=== PATIENT | female | born 1955 | race Caucasian/White ===

== ENCOUNTER 2024-06-21 14:44 | Outpatient (AMB) | payer OTHER, SELFPAY ==
[2024-06-21 14:55] VITALS: BP 147/84; PULSE 81; RESP 18; TEMP 36.1; O2SAT 95; BMI 31.1
--- NOTE | 2024-06-21 14:55 | ORTHONT_ITS ---
Vital signs 06/21/24 14:55 Height 1.6 m Height Method Stated Weight 79.634 kg Weight Measurement Method Standing Scale BMI 31.1 BP 147/84 H Blood Pressure Source Automatic Cuff Blood Pressure Location Right Upper Arm Position Sitting Respiration 18 Pulse 81 Pulse Source Monitor Temp 96.9 F Temp Source Temporal Artery Scan Pulse Oximetry (%) 95 Oxygen Delivery Method Room Air Med/Allergies Allergies & Medications Allergies No Known Allergies Allergy (Verified 06/21/24 14:56) Medication Reconciliation albuterol sulfate 90 mcg/actuation aerosol inhaler (Proventil HFA) 2 inh inhalation Q4H PRN shortness of breath or wheezing #8.5 grams 07/27/21 [Rx Confirmed 06/21/24] atenolol 25 mg tablet 25 mg PO QDAY 09/21/22 [History Confirmed 06/21/24] duloxetine 30 mg capsule,delayed release 30 mg PO QDAY 09/21/22 [History Confirmed 06/21/24] esomeprazole magnesium 40 mg capsule,delayed release (Nexium) 40 mg PO QDAY 09/21/22 [History Confirmed 06/21/24] levothyroxine 150 mcg tablet 150 mcg PO QDAY 09/21/22 [History Confirmed 06/21/24] ondansetron HCl 4 mg tablet 4 mg PO Q6H PRN Nausea 09/21/22 [History Confirmed 06/21/24] ropinirole 4 mg tablet,extended release 24 hr 4 mg PO QDAY 09/21/22 [History Confirmed 06/21/24] naproxen 500 mg tablet 500 mg PO bid #60 tabs 03/19/24 [Rx Confirmed 06/21/24] Subjective Visit Visit for: follow up visit Immunization / Flu Flu Vaccine in the Last 12 Months: No Flu Vaccine Exclusion Criteria: No Exclusion Criteria History of Present Illness Chief complaint: follow up on hip Patient is a pleasant 68-year-old female with chronic joint pain. She reports there is significant pain when she lies down on her side. She has not taken much anti-inflammatories. She reports the trochanteric bursa injections lasted only 2 weeks. She reports that a lot of the pain is now in her groin. She also reports that both knees have been bothering her recently. She is post to get hand surgery for arthritis in July Personal History Occupation: DISABLE Red flag PMH: none Pain Pain level (0-10): 9 Pain duration: comes and goes Pain location: groin Pain quality: sharp Pain timing: increases with activity Associated signs & symptoms: numbness and weakness Ambulatory data Ambulatory device: none Treatments Improvement with previous injections: No Improvement with PT: No Improvement with NSAIDS: n/a Review of Systems Review of Systems: All systems negative unless otherwise noted in HPI. Exam Exam Patient is in no acute distress and is cooperative with the examination today. Breathing is nonlabored. In no respiratory distress. Patient has no paraspinal tenderness. Spinal deformity [cannot] be appreciated. The gait of the patient is [nonantalgic] Bilateral extremities were evaluated and demonstrates sensation intact to light touch. Palpable pedal pulses are present. No significant edema is present. Bilateral knees were examined and the patient has full strength and range of motion.. The right hip was examined. Patient was able to flex to 90 degrees, adduct to 30 degrees, abduct to 40 degrees, internally rotate to 20 degrees, and externally rotate to 20 degrees. Patient has a negative logroll. Stinchfield is negative. The patient is nontender diffusely to touch. The left hip was examined. Patient was able to flex to [90] degrees, adduct to [30] degrees, abduct to [40] degrees, internally rotate to [20] degrees, and externally rotate to [20] degrees. PPatient has a positive logroll and Stinchfield. She is tender to palpation laterally over the greater trochanter X-rays demonstrate complete joint space obliteration of the left hip. There is no right hip x-rays. There are subchondral cyst there as well Assessment and Plan Problem List (1) Trochanteric bursitis of left hip: Status: Acute Plan: Patient is a 68-year-old female with a left hip arthritis and trochanteric bursitis. I do think she has both components. I do think the left hip trochanteric bursitis is likely what is bothering her most as she is significantly tender to palpation of the greater trochanter. We discussed nonop erative options including anti-inflammatories and injections. WWhumberto will see her back after her hand is taking care of. She has arthritis of both her knees and her hips. We will have to go through each 1 individually to see what we can do. We will start her on a systemic anti-inflammatory as well (2) Arthritis of left hip: Status: Acute Advanced Care Planning Discussion Advance care planning discussed with:: patient Office Procedures GNS Level of Care Nursing/Assessment Patient Status: Established Patient Nursing Assessment/Reassesment: Medication Reconciliation, Update PMH in EMR and Vital Signs Coordination of Care: Complex Care and Chronic Disease 1-5, Education Complex Pt/Fam, Consent,records obtained, informed consent, Results/Orders obtained and Staff clarify orders Established Patient Charge Established Patient Point Assignment: 95 Established Patient Point Charge: EP Level 3 (80-115) Past Medical History Past Medical History Have you ever been diagnosed with any of the following: Neurological Problems Seizures: No Migraine: Yes Cardiology Problems Congestive Heart Failure: No Hypertension: No Respiratory Problems Chronic Obstructive Pulmonary Disease (COPD): Yes Asthma: Yes Bronchitis: Yes Sleep Apnea: Yes (cpap broke) Stomache/Intestinal Problems Cirrhosis: Yes Hiatal Hernia: Yes Hemorrhoids: Yes Gastroesophageal Reflux Disease: Yes Genital/Urinary Problems Renal Disease: No Reproductive Problems Pelvic Inflammatory Disease: Yes Previous Pregnancies: Yes Musculoskeletal Problems Arthritis: Yes Fractures: Yes (left femur, no surgery) Head,Eye,Nose,Throat Problems Cataracts: Yes (right eye) Chronic Ear Infections: Yes Endocrine Problems Diabetes Mellitus Type 1: No Diabetes Mellitus Type 2: No Hyperthyroidism: Yes Hypothyroidism: Yes Psychologic Problems Depression: Yes Other Problems Blood Transfusions: No Blood Transfusion Reaction: No Anesthesia Reactions: No MRSA: No Chicken Pox: Yes Measles: Yes Mumps: Yes Cancer: No Surgical History Hysterectomy: Yes
== END 2024-06-21 15:36 | disposition home or self-care (01) ==
LOC: HODSRG 14:44
PROVIDERS: PCP Physician Assistant; Referring Provider Physician Assistant; Supervising Provider Orthopaedic Surgery Adult Reconstructive Orthopaedic Surgery; Visit Provider Orthopaedic Surgery Adult Reconstructive Orthopaedic Surgery
DX: M70.62 Trochanteric bursitis, left hip (principal); M16.12 Unilateral primary osteoarthritis, left hip; E03.9 Hypothyroidism, unspecified; K21.9 Gastro-esophageal reflux disease without esophagitis; G47.30 Sleep apnea, unspecified; K74.60 Unspecified cirrhosis of liver
CPT/HCPCS: 99213; G0463

== ENCOUNTER → 2024-07-15 | Outpatient (CLI) | payer OTHER, SELFPAY ==
--- NOTE | 2024-07-15 16:10 | XR_ITS ---
Examination: Bilateral knees 2 views Right lateral knee left lateral knee 2 views Right axial knee left axial knee 2 views total 6 views Technique: Bilateral AP knees standing single view, bilateral PA knees standing 30 degrees flexion single view Standing right lateral knee left lateral knee 2 views Right axial knee left axial knee 2 views total 6 views Exam date and time: July 15, 2024 1616 hrs. Indications: Bilateral knee pain years. Findings: Moderate to advanced narrowing medial joint space right knee Mild to moderate osteoarthritis right patellofemoral joint Advanced narrowing medial joint space left knee Moderate osteoarthritis patellofemoral joint left knee No fracture or dislocation involving either knee Impression: Moderate to advanced narrowing medial joint space right knee Advanced narrowing medial joint space left knee
--- NOTE | 2024-07-15 16:10 | XR_ITS ---
Examination: Abdomen AP single view Technique: AP portable supine abdomen, single view Exam date and time: July 15, 2024 1614 hrs. Indications: Chronic abdominal pain years Findings: Moderate stool throughout the colon No obstruction This film does not include the upper abdomen Moderate to advanced bilateral hip osteoarthritis Impression: Moderate stool throughout the colon, no obstruction
--- NOTE | 2024-07-15 16:10 | XR_ITS ---
Examination: Bilateral hips, AP pelvis, 5 views Technique: AP, lateral views both hips, AP pelvis, 5 views Exam date and time: July 15, 2024 1616 hrs. Indications: Bilateral hip pain months Findings: Moderate to advanced right hip osteoarthritis Advanced left hip osteoarthritis No fracture or dislocation Moderate osteopenia Impression: Moderate to advanced right hip osteoarthritis Advanced left hip osteoarthritis
[2024-07-15 17:31] LABS: Basophils % (Auto) 0 % (0-2.5); Eosinophils # (Auto) 0.3 Thou/mm3 (0.0-0.5); Eosinophils % (Auto) 8 % (0-10); Hematocrit 29.2 % (36.0-46.0); Immature Granulocytes % (Auto) 0 % (0-0); Immature Granulocytes Auto 0.01 Thou/mm3 (0.00-0.00); Lymphocytes # (Auto) 0.9 Thou/mm3 (1.0-4.8); Lymphocytes % (Auto) 28 % (10-50); Mean Corpuscular HGB Conc 30.1 g/dl (31.0-37.0); Mean Corpuscular Hemoglobin 22.1 pg (25.0-35.0); Mean Corpuscular Volume 73 fL (80-100); Monocytes # (Auto) 0.3 Thou/mm3 (0.0-0.8); Monocytes % (Auto) 9 % (0-12); Neutrophils # (Auto) 1.7 Thou/mm3 (1.8-7.7); Neutrophils % (Auto) 55 % (37-80); Nucleated Red Blood Cell % 0 /100 WBC (0); Platelet Count 104 Thou/mm3 (140-440); RDW Standard Deviation 40.1 fL (36.4-46.3); Red Blood Count 3.99 Miln/mm3 (4.00-5.20); White Blood Count 3.2 Thou/mm3 (3.6-11.0)
[2024-07-15 17:35] LABS: Hemoglobin 8.8 g/dL (12.0-16.0)
[2024-07-15 18:14] LABS: Alanine Aminotransferase 9 U/L (10-49); Albumin, Serum 4.6 gm/dL (3.4-4.8); Albumin/Globulin Ratio 2.1 (1.2-2.2); Alkaline Phosphatase 63 U/L (46-116); Amylase 108 U/L (30-118); Anion Gap 7 (7-16); Aspartate Amino Transferase 17 U/L (0-34); BUN/Creatinine Ratio 16 Ratio (12-20); Bilirubin,Total 0.7 mg/dL (0.3-1.2); Blood Urea Nitrogen 16 mg/dL (9-23); Calcium 9.7 mg/dL (8.3-10.6); Calcium (Corrected) 9.7 mg/dL (8.5-10.1); Carbon Dioxide 30.1 mMol/L (20.0-31.0); Chloride 102 mMol/L (98-107); Globulin 2.2 gm/dL (2.3-3.5); Glucose 105 mg/dL (74-106); Lipase 96 U/L (12-53); Osmolality,Calculated 278 (275-295); Potassium 4.1 mMol/L (3.4-5.1); Sodium 139 mMol/L (136-145); Total Protein 6.8 gm/dL (5.7-8.2); eGFR > 60 See Note
== END | disposition home or self-care (01) ==
LOC: CDIM 16:01 → COPL 17:03
PROVIDERS: Specialist; PCP Physician Assistant; Referring Provider Orthopaedic Surgery Adult Reconstructive Orthopaedic Surgery; Visit Provider Radiology Diagnostic Radiology
DX: K59.00 Constipation, unspecified (principal); M16.0 Bilateral primary osteoarthritis of hip; M25.862 Other specified joint disorders, left knee; M25.861 Other specified joint disorders, right knee; R10.9 Unspecified abdominal pain
CPT/HCPCS: 36415; 73523; 73564; 74018; 80053; 81001; 82150; 83690; 85025

== ENCOUNTER → 2024-08-09 | Outpatient (CLI) | payer OTHER, SELFPAY ==
--- NOTE | 2024-08-09 06:00 | EKG_ITS ---
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
[2024-08-09 15:47] LABS: Partial Thromboplastin Time 25.7 Seconds (22.0-36.0); Prothrombin Time 11.4 Seconds (9.0-12.2)
[2024-08-09 16:01] LABS: Alanine Aminotransferase < 7 U/L (10-49); Albumin, Serum 4.3 gm/dL (3.4-4.8); Albumin/Globulin Ratio 1.8 (1.2-2.2); Alkaline Phosphatase 58 U/L (46-116); Anion Gap 4 (7-16); Aspartate Amino Transferase 15 U/L (0-34); BUN/Creatinine Ratio 26 Ratio (12-20); Bilirubin,Total 0.5 mg/dL (0.3-1.2); Blood Urea Nitrogen 23 mg/dL (9-23); Calcium 9.3 mg/dL (8.3-10.6); Calcium (Corrected) 9.3 mg/dL (8.5-10.1); Carbon Dioxide 28.5 mMol/L (20.0-31.0); Chloride 103 mMol/L (98-107); Creatinine (Component) 0.9 mg/dL (0.6-1.3); Globulin 2.4 gm/dL (2.3-3.5); Glucose 121 mg/dL (74-106); Osmolality,Calculated 274 (275-295); Sodium 135 mMol/L (136-145); Total Protein 6.7 gm/dL (5.7-8.2); eGFR > 60 See Note
== END | disposition home or self-care (01) ==
LOC: SEKG 08-15 08:39
PROVIDERS: Anesthesiology; PCP Physician Assistant; Referring Provider Specialist; Visit Provider Specialist
PROC: 0DBE8ZX Excision of Large Intestine, Via Natural or Artificial Opening Endoscopic, Diagnostic (ICD-10-PCS; CPT 45380; principal; 2024-08-12 11:30)
DX: Z01.810 Encounter for preprocedural cardiovascular examination (principal); D62 Acute posthemorrhagic anemia
CPT/HCPCS: 36415; 80053; 85610; 85730; 93005

== ENCOUNTER → 2024-09-19 | Outpatient (CLI) | payer OTHER, SELFPAY ==
--- NOTE | 2024-09-19 14:39 | EKG_ITS ---
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
[2024-09-19 15:03] LABS: Partial Thromboplastin Time 26.5 Seconds (22.0-36.0); Prothrombin Time 11.3 Seconds (9.0-12.2)
[2024-09-19 15:28] LABS: Alanine Aminotransferase < 7 U/L (10-49); Albumin, Serum 4.3 gm/dL (3.4-4.8); Albumin/Globulin Ratio 1.8 (1.2-2.2); Alkaline Phosphatase 60 U/L (46-116); Anion Gap 8 (7-16); Aspartate Amino Transferase 12 U/L (0-34); BUN/Creatinine Ratio 14 Ratio (12-20); Bilirubin,Total 0.5 mg/dL (0.3-1.2); Blood Urea Nitrogen 14 mg/dL (9-23); Calcium 9.7 mg/dL (8.3-10.6); Calcium (Corrected) 9.7 mg/dL (8.5-10.1); Carbon Dioxide 28.7 mMol/L (20.0-31.0); Chloride 104 mMol/L (98-107); Globulin 2.4 gm/dL (2.3-3.5); Glucose 93 mg/dL (74-106); Osmolality,Calculated 281 (275-295); Potassium 3.8 mMol/L (3.4-5.1); Sodium 141 mMol/L (136-145); Total Protein 6.7 gm/dL (5.7-8.2); eGFR > 60 See Note
== END | disposition home or self-care (01) ==
LOC: SLAB 09-26 08:28
PROVIDERS: PCP Physician Assistant; Referring Provider Specialist; Visit Provider Specialist
DX: Z01.810 Encounter for preprocedural cardiovascular examination (principal); Z01.812 Encounter for preprocedural laboratory examination
CPT/HCPCS: 36415; 80053; 85610; 85730; 93005

== ENCOUNTER → 2024-12-26 | Outpatient (CLI) | payer OTHER, SELFPAY ==
[2024-12-26 16:00] LABS: Misc Send Out* See Sep Rpt
[2024-12-26 17:01] LABS: Alanine Aminotransferase 8 U/L (10-49); Albumin, Serum 4.6 gm/dL (3.4-4.8); Albumin/Globulin Ratio 1.9 (1.2-2.2); Alkaline Phosphatase 68 U/L (46-116); Anion Gap 12 (7-16); Aspartate Amino Transferase 23 U/L (0-34); BUN/Creatinine Ratio 13 Ratio (12-20); Bilirubin,Total 0.7 mg/dL (0.3-1.2); Blood Urea Nitrogen 16 mg/dL (9-23); Calcium 9.4 mg/dL (8.3-10.6); Calcium (Corrected) 9.4 mg/dL (8.5-10.1); Chloride 106 mMol/L (98-107); Creatinine (Component) 1.2 mg/dL (0.6-1.3); Free T4 (Free Thyroxine) 1.47 ng/dL (0.89-1.76); Globulin 2.4 gm/dL (2.3-3.5); Glucose 123 mg/dL (74-106); Osmolality,Calculated 283 (275-295); Potassium 3.9 mMol/L (3.4-5.1); Sodium 141 mMol/L (136-145); Thyroid Stimulating Hormone 27.88 uIU/mL (0.55-4.78); eGFR 49 See Note
== END | disposition home or self-care (01) ==
LOC: COPL 15:41
PROVIDERS: PCP Physician Assistant; Referring Provider Physician Assistant; Visit Provider Physician Assistant
DX: E03.9 Hypothyroidism, unspecified (principal); I10 Essential (primary) hypertension; Z79.891 Long term (current) use of opiate analgesic
CPT/HCPCS: 36415; 80053; 80307; 84439; 84443

== ENCOUNTER 2025-01-21 09:07 | Outpatient (AMB) | payer OTHER, SELFPAY ==
[2025-01-21 09:24] VITALS: BP 101/62; PULSE 94; RESP 18; TEMP 36.1; O2SAT 95; BMI 32.8
--- NOTE | 2025-01-21 09:24 | ORTHONT_ITS ---
Vital signs 01/21/25 09:24 Height 1.6 m Height Method Stated Weight 83.943 kg Weight Measurement Method Standing Scale BMI 32.8 BP 101/62 Blood Pressure Source Automatic Cuff Blood Pressure Location Right Upper Arm Position Sitting Respiration 18 Pulse 94 Pulse Source Monitor Temp 96.9 F Temp Source Temporal Artery Scan Pulse Oximetry (%) 95 Oxygen Delivery Method Room Air Med/Allergies Allergies & Medications Allergies No Known Allergies Allergy (Verified 01/21/25 09:25) Medication Reconciliation albuterol sulfate 90 mcg/actuation aerosol inhaler (Proventil HFA) 2 inh inhalation Q4H PRN shortness of breath or wheezing #8.5 grams 07/27/21 [Rx Confirmed 01/21/25] atenolol 25 mg tablet 25 mg PO QDAY 09/21/22 [History Confirmed 01/21/25] duloxetine 30 mg capsule,delayed release 30 mg PO QDAY 09/21/22 [History Confirmed 01/21/25] esomeprazole magnesium 40 mg capsule,delayed release (Nexium) 40 mg PO QDAY 09/21/22 [History Confirmed 01/21/25] levothyroxine 150 mcg tablet 150 mcg PO QDAY 09/21/22 [History Confirmed 01/21/25] ondansetron HCl 4 mg tablet 4 mg PO Q6H PRN Nausea 09/21/22 [History Confirmed 01/21/25] ropinirole 4 mg tablet,extended release 24 hr 4 mg PO QDAY 09/21/22 [History Confirmed 01/21/25] naproxen 500 mg tablet 500 mg PO bid #60 tabs 03/19/24 [Rx Confirmed 01/21/25] Exam Exam Patient is in no acute distress and is cooperative with the examination today. Breathing is nonlabored. In no respiratory distress. Patient has no paraspinal tenderness. Spinal deformity [cannot] be appreciated. The gait of the patient is [nonantalgic] Bilateral extremities were evaluated and demonstrates sensation intact to light touch. Palpable pedal pulses are present. No significant edema is present. Bilateral knees were examined and the patient has full strength and range of motion.. The right hip was examined. Patient was able to flex to 90 degrees, adduct to 30 degrees, abduct to 40 degrees, internally rotate to 20 degrees, and externally rotate to 20 degrees. Patient has a negative logroll. Stinchfield is negative. The patient is nontender diffusely to touch. The left hip was examined. Patient was able to flex to [90] degrees, adduct to [30] degrees, abduct to [40] degrees, internally rotate to [20] degrees, and externally rotate to [20] degrees. PPatient has a positive logroll and Stinc hfield. She is tender to palpation laterally over the greater trochanter X-rays demonstrate complete joint space obliteration of the left hip. There is no right hip x-rays. There are subchondral cyst there as well Assessment and Plan Problem List (1) Trochanteric bursitis of left hip: Status: Acute Plan: Patient is a 68-year-old female with a left hip arthritis. She has significant left hip and knee arthritis. We discussed continued conservative treatment vs surgery whcih would include hip replacement. She wants to hold off on surgery for now. She is supposed to get nose surgery done in the next month. We Has tried cortisone injections in the past and they have not been helping. He does not want to get surgery at this time but the pain is (2) Arthritis of left hip: Status: Acute Advanced Care Planning Discussion Advance care planning discussed with:: patient Office Procedures GNS Level of Care Nursing/Assessment Patient Status: Established Patient Nursing Assessment/Reassesment: Medication Reconciliation, Update PMH in EMR and Vital Signs Coordination of Care: Complex Care and Chronic Disease 1-5, Education Complex Pt/Fam, Consent,records obtained, informed consent, Results/Orders obtained and Staff clarify orders Established Patient Charge Established Patient Point Assignment: 95 Established Patient Point Charge: EP Level 3 (80-115) MA Intake Visit Data Collection New Patient or Established: Established Patient (seen at [facility] within 3 years) Reason for Visit:: HIP PAIN Seen by Clinical Staff ONLY (RN/MA): No Verbal consent obtained for Telemed visit?: No 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 PCP or OBGYN visit in last 3 months: Yes Hx Now: No Do You Feel Safe at Home: Yes Authorities Contacted: N/A Questionairres Past Medical History Past Medical History Have you ever been diagnosed with any of the following: Neurological Problems Seizures: No Migraine: Yes Cardiology Problems Congestive Heart Failure: No Hypertension: No Respiratory Problems Chronic Obstructive Pulmonary Disease (COPD): Yes Asthma: Yes Bronchitis: Yes Sleep Apnea: Yes (cpap broke) Stomache/Intestinal Problems Cirrhosis: Yes Hiatal Hernia: Yes Hemorrhoids: Yes Gastroesophageal Reflux Disease: Yes Genital/Urinary Problems Renal Disease: No Reproductive Problems Pelvic Inflammatory Disease: Yes Previous Pregnancies: Yes Musculoskeletal Problems Arthritis: Yes Fractures: Yes (left femur, no surgery) Head,Eye,Nose,Throat Problems Cataracts: Yes (right eye) Chronic Ear Infections: Yes Endocrine Problems Diabetes Mellitus Type 1: No Diabetes Mellitus Type 2: No Hyperthyroidism: Yes Hypothyroidism: Yes Psychologic Problems Depression: Yes Other Problems Blood Transfusions: No Blood Transfusion Reaction: No Anesthesia Reactions: No MRSA: No Chicken Pox: Yes Measles: Yes Mumps: Yes Cancer: No Surgical History Hysterectomy: Yes Subjective Visit Visit for: follow up visit and hip Immunization / Flu Flu Vaccine in the Last 12 Months: No Flu Vaccine Exclusion Criteria: No Exclusion Criteria History of Present Illness Chief complaint: HIP PAIN Personal History Red flag PMH: BMI BMI Counceling provided: Yes Pain Pain level (0-10): 7 Pain duration: ALL DAY Pain location: groin and outside (lateral) Pain quality: sharp, dull and aching Pain timing: increases with activity Ambulatory data Ambulatory device: none Treatments Improvement with previous injections: No Improvement with PT: No Improvement with NSAIDS: no Review of Systems Review of Systems: All systems negative unless otherwise noted in HPI.
== END 2025-01-21 09:49 | disposition home or self-care (01) ==
PROVIDERS: PCP Physician Assistant; Referring Provider Physician Assistant; Supervising Provider Orthopaedic Surgery Adult Reconstructive Orthopaedic Surgery; Visit Provider Orthopaedic Surgery Adult Reconstructive Orthopaedic Surgery
DX: M70.62 Trochanteric bursitis, left hip (principal); M16.12 Unilateral primary osteoarthritis, left hip; J44.9 Chronic obstructive pulmonary disease, unspecified; K21.9 Gastro-esophageal reflux disease without esophagitis; E03.9 Hypothyroidism, unspecified
CPT/HCPCS: 99213; G0463

== ENCOUNTER → 2025-02-26 | Outpatient (CLI) | payer OTHER, SELFPAY ==
[2025-02-26 17:46] LABS: INR 1.1 (0.9-1.3); Prothrombin Time 11.9 Seconds (9.0-12.2)
[2025-02-26 18:00] LABS: Ferritin 4 ng/mL (7.3-270.7); Iron 16 mcg/dL (50-170); Percent Iron Saturation 4 % (20-55); Total Iron Binding Capacity 360 mcg/dL (250-425); Unsaturated Iron Binding 344 (225-295)
[2025-02-26 18:05] LABS: Alanine Aminotransferase < 7 U/L (10-49); Albumin, Serum 4.2 gm/dL (3.4-4.8); Alkaline Phosphatase 57 U/L (46-116); Aspartate Amino Transferase 17 U/L (0-34); Bilirubin,Direct 0.2 mg/dL (0.0-0.3); Bilirubin,Total 0.5 mg/dL (0.3-1.2); Total Protein 6.6 gm/dL (5.7-8.2)
[2025-02-26 21:17] LABS: AFP Non-Pregnant 2.50 ng/mL (<8.10); Hepatitis A Antibody IgM Non Reactive (Non React); Hepatitis B Core Antibody IgM Non Reactive (Non React); Hepatitis B Surface Antigen Non Reactive (Non React); Hepatitis C Antibody Non Reactive (Non React)
[2025-03-03 11:01] LABS: ACTH, Plasma* 18 pg/mL (6-50)
[2025-03-05 06:27] LABS: ANA Screen, IFA NEGATIVE (NEGATIVE); Alpha-1-Antitrypsin* 170 mg/dL (83-199); Ceruloplasmin* 28 mg/dL (14-48); Copper* 125 mcg/dL (70-175); Mitochondrial Ab NEGATIVE (NEGATIVE)
== END | disposition home or self-care (01) ==
LOC: COPL 16:27
PROVIDERS: PCP Physician Assistant; Referring Provider Specialist; Visit Provider Specialist
DX: E78.9 Disorder of lipoprotein metabolism, unspecified (principal); R19.4 Change in bowel habit
CPT/HCPCS: 36415; 80074; 80076; 82024; 82103; 82105; 82390; 82525; 82728; 83540; 83550; 85610; 86038; 86255

== ENCOUNTER → 2025-03-19 | Outpatient (CLI) | payer OTHER, SELFPAY ==
--- NOTE | 2025-03-19 15:30 | XR_ITS ---
Examination: Abdomen sonogram, Limited Date and time of exam: March 19, 2025 1531 hours INDICATIONS: Abnormal liver function tests on laboratory examination February 26, 2025 Technique: Real-time stephens scale transabdominal sonographic images of the upper abdomen obtained. Findings: Absent gallbladder Normal common bile duct 0.5 cm Pancreatic head 2.8 cm Liver 13.2 cm irregular contour Normal hepatopedal portal venous flow Patent IVC IMPRESSION: Suspect primary hepatocellular disease, no focal liver lesions
== END | disposition home or self-care (01) ==
PROVIDERS: PCP Physician Assistant; Referring Provider Specialist; Visit Provider Specialist
DX: R94.5 Abnormal results of liver function studies (principal)
CPT/HCPCS: 76705

== ENCOUNTER → 2025-04-08 | Outpatient (CLI) | payer OTHER, SELFPAY ==
--- NOTE | 2025-04-08 13:15 | XR_ITS ---
Examination: Screening digital mammography, bilateral Computer aided detection 3-D breast Tomosynthesis, bilateral Date and time of exam: April 08, 2025, 1339 hours Compared to mammograms dating to October 15, 2018 Indication: Screening Technique: Nonmagnified MLO, CC views of the breasts to been obtained, reconstructed from 3-D Tomosynthesis images. R2 computer aided detection program utilized for evaluation of suspicious masses and/or abnormal calcifications. 3-D Tomosynthesis images obtained. Findings: Scattered areas of fibroglandular density. Benign calcifications. No interval suspicious masses Impression: BI-RADS category II: Benign Findings. Recommend 1 year follow-up mammogram.
--- NOTE | 2025-04-08 13:30 | XR_ITS ---
Examination: Bone densitometry Date and time of exam:April 08, 2025 1359 hours INDICATIONS: Hysterectomy age 50, postmenopausal lower leg fracture, family history father hip fracture, levothyroxine 20 years, personal history osteopenia Technique: Lumbar spine and hip total bone mineralization values of an calculated. Peak reference and age match control results have been displayed. Findings: Lumbar spine total bone mineralization is0.946 gm/cm2. This is 0.9 standard deviations below peak reference. This is 1.2 standard deviations above age-matched controls. Hip total bone mineralization is 0.731 gm/cm2 This is 1.7 standard deviations below peak reference. This is 0.3 standard deviations below age-matched controls Impression: There is normal mineralization based on lumbar spine measurements. There is osteopenia based on hip measurements Lumbar mineralization is increase 7.7% compared with May 25, 2009 Hip mineralization is increased 1.7% compared with May 25, 2009
== END | disposition home or self-care (01) ==
LOC: CDIM 13:28
PROVIDERS: PCP Physician Assistant; Referring Provider Physician Assistant; Visit Provider Physician Assistant
DX: Z12.31 Encounter for screening mammogram for malignant neoplasm of breast (principal); R92.323 Mammographic fibroglandular density, bilateral breasts; R92.1 Mammographic calcification found on diagnostic imaging of breast; M85.89 Other specified disorders of bone density and structure, multiple sites
CPT/HCPCS: 77063; 77067; 77080

== ENCOUNTER 2025-04-11 12:45 | Day surgery (SDC) | payer OTHER, SELFPAY ==
[2025-04-11] VITALS (12 sets, daily range): BP systolic 133–161; BP diastolic 78–118; PULSE 78–104; RESP 12–18; TEMP 36.5–36.6; O2SAT 94–97; BMI 30.9
[2025-04-11] MEDS: SODIUM CHLORIDE 0.9% 500 ML 500 ML 20 ML IV (13:56)
[2025-04-11] MEDS: MIDAZOLAM INJ 1 MG/ML VIAL 2 ML (ASD USE ONLY) 2 MG IVP (14:09)
[2025-04-11] MEDS: fentaNYL CIT INJ 50 mCg/ML AMP 2ML (ASD USE ONLY) IVP (14:09)
--- NOTE | 2025-04-11 15:02 | SUR.PHASEII ---
1500 Pt remains very drowsy. Denies pain or N/V-then drifts back to sleep. Abd remains soft.
--- NOTE | 2025-04-11 15:41 | SUR.PHASEII ---
1540 Pt more awake and alert. Denies pain or N/V. Abd remains soft. Noé Po fluids. Able to dress self. Pt and given dc instructions. Both state understanding. Pt meets DC criteria-to home.
== END 2025-04-11 15:40 | disposition home or self-care (01) ==
PROVIDERS: PCP Physician Assistant; Referring Provider Specialist; Visit Provider Specialist
PROC: 0DBE8ZX Excision of Large Intestine, Via Natural or Artificial Opening Endoscopic, Diagnostic (ICD-10-PCS; CPT 45380; principal; 2025-04-11 11:45)
DX: K64.9 Unspecified hemorrhoids (principal); R19.4 Change in bowel habit; K57.30 Diverticulosis of large intestine without perforation or abscess without bleeding; E03.9 Hypothyroidism, unspecified; D62 Acute posthemorrhagic anemia; J45.909 Unspecified asthma, uncomplicated
CPT/HCPCS: 45378; A4217; A4649; J1200; J2250; J3010; J7999

== ENCOUNTER → 2025-05-16 | Outpatient (CLI) | payer OTHER, SELFPAY ==
[2025-05-16 17:53] LABS: Basophils # (Auto) 0.0 Thou/mm3 (0.0-0.2); Basophils % (Auto) 1 % (0-2.5); Eosinophils # (Auto) 0.2 Thou/mm3 (0.0-0.5); Eosinophils % (Auto) 6 % (0-10); Hematocrit 33.2 % (36.0-46.0); Hemoglobin 9.6 g/dL (12.0-16.0); Immature Granulocytes Auto 0.01 Thou/mm3 (0.00-0.00); Lymphocytes # (Auto) 0.8 Thou/mm3 (1.0-4.8); Lymphocytes % (Auto) 26 % (10-50); Mean Corpuscular HGB Conc 28.9 g/dl (31.0-37.0); Mean Corpuscular Hemoglobin 21.8 pg (25.0-35.0); Mean Corpuscular Volume 76 fL (80-100); Monocytes # (Auto) 0.2 Thou/mm3 (0.0-0.8); Monocytes % (Auto) 6 % (0-12); Neutrophils # (Auto) 1.9 Thou/mm3 (1.8-7.7); Neutrophils % (Auto) 61 % (37-80); Nucleated Red Blood Cell # 0.00 Thou/mm3 (0.00-0.00); Nucleated Red Blood Cell % 0 /100 WBC (0); Platelet Count 123 Thou/mm3 (140-440); RDW Standard Deviation 52.5 fL (36.4-46.3); Red Blood Count 4.40 Miln/mm3 (4.00-5.20); White Blood Count 3.2 Thou/mm3 (3.6-11.0)
[2025-05-16 18:02] LABS: Ferritin 7 ng/mL (7.3-270.7); Iron 22 mcg/dL (50-170); Percent Iron Saturation 4 % (20-55); Total Iron Binding Capacity 447 mcg/dL (250-425); Unsaturated Iron Binding 425 (225-295)
[2025-05-16 18:03] LABS: Free T4 (Free Thyroxine) 1.18 ng/dL (0.89-1.76); Thyroid Stimulating Hormone 21.02 uIU/mL (0.55-4.78); Uric Acid 4.6 mg/dL (3.1-7.8)
[2025-05-16 18:22] LABS: Sed Rate (ESR) 8 mm/hr (0-30)
[2025-05-16 19:07] LABS: RA Screen Negative (Negative)
[2025-05-26 06:49] LABS: ANA Pattern NUCLEAR, NUCLEOLAR; ANA Screen, IFA POSITIVE (NEGATIVE); ANA Titer 1:80 titer
== END | disposition home or self-care (01) ==
LOC: CDIM 16:56 → COPL 16:56
PROVIDERS: PCP Physician Assistant; Referring Provider Physician Assistant; Visit Provider Physician Assistant
DX: M19.90 Unspecified osteoarthritis, unspecified site (principal); D50.9 Iron deficiency anemia, unspecified; E03.9 Hypothyroidism, unspecified
CPT/HCPCS: 36415; 82728; 83540; 83550; 84439; 84443; 84550; 85025; 85652; 86038; 86430

== ENCOUNTER → 2025-06-13 | Outpatient (CLI) | payer OTHER, SELFPAY ==
[2025-06-13 16:17] LABS: Basophils # (Auto) 0.0 Thou/mm3 (0.0-0.2); Basophils % (Auto) 1 % (0-2.5); Eosinophils # (Auto) 0.2 Thou/mm3 (0.0-0.5); Eosinophils % (Auto) 4 % (0-10); Hematocrit 34.4 % (36.0-46.0); Hemoglobin 10.6 g/dL (12.0-16.0); Immature Granulocytes Auto 0.01 Thou/mm3 (0.00-0.00); Lymphocytes # (Auto) 1.0 Thou/mm3 (1.0-4.8); Lymphocytes % (Auto) 25 % (10-50); Mean Corpuscular HGB Conc 30.8 g/dl (31.0-37.0); Mean Corpuscular Hemoglobin 23.6 pg (25.0-35.0); Mean Corpuscular Volume 77 fL (80-100); Monocytes # (Auto) 0.2 Thou/mm3 (0.0-0.8); Monocytes % (Auto) 6 % (0-12); Neutrophils # (Auto) 2.5 Thou/mm3 (1.8-7.7); Neutrophils % (Auto) 65 % (37-80); Nucleated Red Blood Cell # 0.00 Thou/mm3 (0.00-0.00); Nucleated Red Blood Cell % 0 /100 WBC (0); Platelet Count 117 Thou/mm3 (140-440); RDW Standard Deviation 54.8 fL (36.4-46.3); Red Blood Count 4.49 Miln/mm3 (4.00-5.20); White Blood Count 3.9 Thou/mm3 (3.6-11.0)
[2025-06-13 16:33] LABS: Ferritin 30 ng/mL (7.3-270.7); Iron 45 mcg/dL (50-170); Percent Iron Saturation 11 % (20-55); Total Iron Binding Capacity 409 mcg/dL (250-425); Unsaturated Iron Binding 364 (225-295)
== END | disposition home or self-care (01) ==
LOC: COPL 14:54
PROVIDERS: PCP Physician Assistant; Referring Provider Physician Assistant; Visit Provider Physician Assistant
DX: D50.9 Iron deficiency anemia, unspecified (principal)
CPT/HCPCS: 36415; 82728; 83540; 83550; 85025

== ENCOUNTER → 2025-06-17 | Outpatient (CLI) | payer OTHER, SELFPAY ==
[2025-06-17 17:30] LABS: Misc Send Out* See Sep Rpt
[2025-06-17 17:49] LABS: Basophils # (Auto) 0.0 Thou/mm3 (0.0-0.2); Basophils % (Auto) 0 % (0-2.5); Eosinophils # (Auto) 0.2 Thou/mm3 (0.0-0.5); Eosinophils % (Auto) 4 % (0-10); Hematocrit 36.4 % (36.0-46.0); Hemoglobin 11.2 g/dL (12.0-16.0); Immature Granulocytes Auto 0.01 Thou/mm3 (0.00-0.00); Lymphocytes # (Auto) 0.9 Thou/mm3 (1.0-4.8); Lymphocytes % (Auto) 19 % (10-50); Mean Corpuscular HGB Conc 30.8 g/dl (31.0-37.0); Mean Corpuscular Hemoglobin 23.9 pg (25.0-35.0); Mean Corpuscular Volume 78 fL (80-100); Monocytes # (Auto) 0.3 Thou/mm3 (0.0-0.8); Monocytes % (Auto) 7 % (0-12); Neutrophils # (Auto) 3.3 Thou/mm3 (1.8-7.7); Neutrophils % (Auto) 71 % (37-80); Nucleated Red Blood Cell # 0.00 Thou/mm3 (0.00-0.00); Nucleated Red Blood Cell % 0 /100 WBC (0); Platelet Count 138 Thou/mm3 (140-440); RDW Standard Deviation 55.9 fL (36.4-46.3); Red Blood Count 4.69 Miln/mm3 (4.00-5.20); White Blood Count 4.6 Thou/mm3 (3.6-11.0)
[2025-06-17 18:07] LABS: Alanine Aminotransferase 12 U/L (10-49); Albumin, Serum 5.0 gm/dL (3.4-4.8); Alkaline Phosphatase 74 U/L (46-116); Aspartate Amino Transferase 25 U/L (0-34); Bilirubin,Direct 0.4 mg/dL (0.0-0.3); Bilirubin,Total 1.0 mg/dL (0.3-1.2); Cardiac Risk Estimate 2.2 RATIO (3.7-5.6); Cholesterol 145 mg/dL (132-200); HDL Cholesterol 65 mg/dL (40-60); LDL Cholesterol,Calculated 68 mg/dL (0-130); Total Protein 7.3 gm/dL (5.7-8.2); Triglycerides 59 mg/dL (30-150)
[2025-06-17 21:13] LABS: Hepatitis A Antibody IgM Non Reactive (Non React); Hepatitis B Core Antibody IgM Non Reactive (Non React); Hepatitis B Surface Ab NonReact(Not Immune) (Immune); Hepatitis B Surface Antigen Non Reactive (Non React); Hepatitis C Antibody Non Reactive (Non React); Vitamin D 25 Hydroxy Total 42.9 ng/mL (7.3-40.2)
[2025-06-21 08:49] LABS: HCV RNA, PCR <15 NOT DETECTED IU/mL; Hepatitis B Virus DNA* NOT DETECTED
[2025-06-23 06:55] LABS: HCV RNA, PCR Log IU <1.18 NOT DETECTED Log IU/mL; Hepatitis B DNA PCR NOT DETECTED Log IU/mL
== END | disposition home or self-care (01) ==
LOC: COPL 17:14
PROVIDERS: PCP Physician Assistant; Referring Provider Internal Medicine; Visit Provider Internal Medicine
DX: N18.30 Chronic kidney disease, stage 3 unspecified (principal)
CPT/HCPCS: 36415; 80061; 80074; 80076; 82306; 82570; 84156; 85025; 86689; 86706; 86790; 87517; 87522